=== PATIENT | male | born 1985 | race Caucasian/White ===

== ENCOUNTER → 2017-04-10 | Outpatient (CLI) | payer MEDICAID ==
[~2017-04-10] MED LIST: BUSPIRONE HCL10 MG PO; DIAZEPAM2 MG PO; ESCITALOPRAM 2020 MG PO; KLONOPIN0.5 M1 PO; LAMICTAL 100 M100 MG PO; PREDNISONE 20MG20 MG PO; PROTONIX 40MG T40 MG PO; QUETIAPINE FUMA25 MG PO; TESSALON PERLE100 MG PO; VALTREX500 MG PO; VENLAFAXINE HC100 MG PO; ZITHROMAX Z PA250 MG PO
[2017-04-10 21:28] LABS: AMPHETAMINES/METAMPHETAMINES NEGATIVE ng/mL (<1000)
== END ==
LOC: LAB 18:23
PROVIDERS: Physician Assistant
DX: Z79.899 Other long term (current) drug therapy (principal)